=== PATIENT | female | born 1980 | race Caucasian/White ===

== ENCOUNTER 2021-01-08 09:26 | Emergency (ER) | payer OTHER, SELFPAY ==
[2021-01-08 10:06] VITALS: BP 152/96; PULSE 84; RESP 16; TEMP 36.9; O2SAT 84; BMI 39.6
[2021-01-08 10:15] LABS: UTC Strep Screen (Rapid) Positive (Negative)
[2021-01-08 10:37] VITALS: BP 152/96; PULSE 84; RESP 16; TEMP 35.3
--- NOTE | 2021-01-08 10:46 | HMH.EDUTC ---
[facility] [place] Disposition Clinical Impression: Strep throat Disposition: Home, Self-Care Condition on Discharge: Good Instructions: Strep Throat, DI for Strep Throat Additional Instructions: Drink plenty of fluids. Take tylenol or ibuprofen for pain or fever. Take the medications as directed. Follow up with your regular doctor. GO TO THE ER FOR ANY WORSENING SYMPTOMS Throw your tooth brush away and get a new one. Don't start the oral steroids until tomorrow, since you had the shot here today. The cough medication (promethazine dm) will make you drowsy, so don't drive or operate heavy machinery after taking it. Prescriptions: Albuterol Sulfate [Albuterol Sulfate Hfa] 2 puffs IH Q6HP PRN 30 Days #1 each PRN Reason: Shortness Of Breath Transmission Status: Received by [facility] #[id number] Promethazine/Dextromethorphan [Promethazine-Dm Syrup] 5 ml PO Q6HP PRN #240 ml PRN Reason: Cough Transmission Status: Received by [id number] methylPREDNISolone [Medrol] 4 mg PO DIRECTED 6 Days #21 packet Transmission Status: Received by [facility] #[id number] Cefdinir [Omnicef 300mg Capsule] 300 mg PO BID #20 cap Transmission Status: Received by [facility] #[id number] Referrals: Ramiro Mora [Primary Care Provider] - Forms: Work/School Release Time of Disposition: 10:58 Medical Decision Making - Medical Records Medical records reviewed: No: I reviewed the patient's medical records. - Ben Inquiry Pt receiving controlled substance: No Vital Signs: 01/08/21 10:06 01/08/21 10:37 Temperature 98.5 F 95.5 F L Temperature Source Oral Pulse Rate 84 Pulse Rate [Left] 84 Respiratory Rate 16 16 Blood Pressure 152/96 H Blood Pressure [Right Arm] 152/96 H Blood Pressure Mean [Right Arm] 114 02 Sat by Pulse Oximetry 84 L - Lab Data Lab Results 01/08/21 10:14: Strep [facility] Positive A Orders (Tests/Meds): ED MEDICATIONS Discontinued Medications Generic Name Dose Route Start Last Admin Trade Name Freq PRN Reason Stop Dose Admin Ceftriaxone Sodium 1 gm 01/08/21 10:51 01/08/21 11:08 Ceftriaxone 1gm Vial IM 01/08/21 10:52 1 gm ONCE ONE Administration Lidocaine HCl 0 ml 01/08/21 10:51 01/08/21 11:08 Lidocaine 1% 5ml Pf Vial IM 01/08/21 10:52 2.5 ml ONCE ONE Administration Methylprednisolone Sodium Succinate 125 mg 01/08/21 10:51 01/08/21 11:07 Methylprednisolone Sod Succ 125mg Vial IM 01/08/21 10:52 125 mg ONCE ONE [address] [facility] [place] HPI - General Stated complaint: sore throat, cough,headache,congestion,ear pain Time Seen by Provider: 01/08/21 10:46 Mode of Arrival: Ambulatory Source of Information: Patient Limitations: No Limitations Description of Symptoms (Recalled from Triage Doc. by RN): pt c/o cough, congestion, sore throat, R lung pain with breathing, L ear pain, and sneezing since Sat. pt had a negative covid test 01/06. HEENT Symptoms (Recalled from RN notes): Yes (sore throat, sneezing and L ear pain) Resp Symptoms (Recalled from RN notes): Yes (cough and L sided lung pain) Skin Symptoms (Recalled from RN notes): No MS Symptoms (Recalled from RN notes): No Functional Status (Recalled from RN notes): na - History of Present Illness Provider Complaint: She c/o sore throat and chest congestion for the past 4 days. She denies any fever. She states that her sore throat is the worst of her problems, but she has been coughing a lot, especially at night. - Related Data Previous Rx's Medication Instructions Recorded prednisone 20 mg tablet 20 mg PO BID 5 Days #10 tab 06/13/19 Albuterol Sulfate [Albuterol 2 puffs IH Q6HP PRN 30 Days #1 each 01/08/21 Sulfate Hfa] Cefdinir [Omnicef 300mg Capsule] 300 mg PO BID #20 cap 01/08/21 Promethazine/Dextromethorphan 5 ml PO Q6HP PRN #240 ml 01/08/21 [Promethazine-Dm Syrup] methylPREDNISolone [Medrol] 4 mg PO DIRECTED 6 Days #21 01/08/21 packet Allergies Allergy
== END 2021-01-08 11:24 | disposition home or self-care (01) ==
PROVIDERS: Emergency Provider Nurse Practitioner Family; PCP Pediatrics
DX: J02.0 Streptococcal pharyngitis (principal)
CPT/HCPCS: 87880; 99202; G0463